=== PATIENT | male | born 1980 | race Caucasian/White ===

== ENCOUNTER 2022-07-27 17:45 | Emergency (ER) | payer MEDICAID ==
[~2022-07-27] VITALS: Ht 175.3 cm; Wt 63.5 kg
[~2022-07-27 17:45] MED LIST: AMOX-358 PO; HYDR1TAB PO; LORA1TAB; OXCA600T10; TRAZ-227
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
--- NOTE | 2022-07-27 18:44 | Diagnostic Imaging Report ---
INDICATION: Pain. Three views of the left shoulder were obtained. FINDINGS: The alignment is normal. There is no fracture or dislocation. The left lung is clear. The soft tissues are unremarkable. IMPRESSION: No acute fracture or dislocation. Dictated by: Dictated on workstation # [id number]
[2022-07-27] MEDS ORDERED: HYDROcodone/APAP 5 MG/325 MG (LORTAB) TAB PO ONE (19:00)
[2022-07-27] MEDS ORDERED: ACHD5005 PO (19:20)
[2022-07-27 19:32] VITALS: BP 140/91
== END 2022-07-27 19:32 | disposition home or self-care (01) ==
LOC: EDUNIT# 17:45 → ER 17:46
DX: M25.512 Pain in left shoulder (principal); F17.210 Nicotine dependence, cigarettes, uncomplicated; Z28.310 Unvaccinated for COVID-19; V89.2XXA Person injured in unspecified motor-vehicle accident, traffic, initial encounter; Y92.481 Parking lot as the place of occurrence of the external cause
CPT/HCPCS: 73030